=== PATIENT | male | born 1985 | race Two or more races ===

== ENCOUNTER 2019-12-27 16:56 | Outpatient (CLI) | payer OTHER | END 2019-12-27 17:00 | disposition home or self-care (01) | LOC: RAD 16:56 | PROVIDERS: ATTEND Orthopaedic Surgery | DX: S52.232A Displaced oblique fracture of shaft of left ulna, initial encounter for closed fracture (principal) ==

== ENCOUNTER → 2020-01-21 10:37 | Outpatient (CLI) | payer OTHER | END | disposition home or self-care (01) | LOC: LAB 10:29 → EDSTATUS 10:33 → LAB 10:37 | PROVIDERS: ATTEND Orthopaedic Surgery | DX: M85.88 Other specified disorders of bone density and structure, other site (principal); E56.1 Deficiency of vitamin K; E55.9 Vitamin D deficiency, unspecified; S52.232D Displaced oblique fracture of shaft of left ulna, subsequent encounter for closed fracture with routine healing ==

== ENCOUNTER → 2020-04-23 | Outpatient (CLI) | payer OTHER | END | disposition home or self-care (01) | LOC: RAD 09:26 | PROVIDERS: ATTEND Orthopaedic Surgery | DX: S52.232D Displaced oblique fracture of shaft of left ulna, subsequent encounter for closed fracture with routine healing (principal) ==